=== PATIENT | male | born 1940 | race Caucasian/White ===

== ENCOUNTER → 2016-09-21 | Day surgery (SDC) | payer MEDICARE ==
[~2016-09-21] MED LIST: ALEN70 PO; C TESTOSTERONE TOP; CARV6.25 PO; CENTTAB9 PO; CINNAMON PO; FENO50TA PO; FISH1000 PO; FLAXOIL PO; GLYB1TAB51 PO; LACTATED RINGER'S 1000 ML INJ 1,000 ML ONE; LANO0.2510 PO; LANTUSP SQ; LISI40TA PO; PROPOFOL 500 MG/50 ML BTL IV ONE; VITA10002 PO; ZOCO40TA PO
== END | disposition home or self-care (01) ==
LOC: ESDC 06:57
PROVIDERS: ATTEND Internal Medicine Gastroenterology
DX: D50.9 Iron deficiency anemia, unspecified (principal); K31.7 Polyp of stomach and duodenum; K92.1 Melena; K57.90 Diverticulosis of intestine, part unspecified, without perforation or abscess without bleeding; K55.21 Angiodysplasia of colon with hemorrhage; E11.9 Type 2 diabetes mellitus without complications; Z79.4 Long term (current) use of insulin
CPT/HCPCS: 00740; 00810; 43239; 45388; 82948; 88305; J7120